=== PATIENT | female | born 1965 | race Caucasian/White ===

== ENCOUNTER → 2021-08-14 19:11 | Outpatient (CLI) | payer BC, SELFPAY | PROVIDERS: PCP Family Medicine; Visit Provider Family Medicine | DX: G47.33 Obstructive sleep apnea (adult) (pediatric) (principal); R06.81 Apnea, not elsewhere classified; R40.0 Somnolence | CPT/HCPCS: 95806 ==

== ENCOUNTER → 2022-02-03 08:02 | Outpatient (CLI) | payer BC, SELFPAY ==
[2022-02-03 08:35] VITALS: PULSE 69; PULSE 72
--- NOTE | 2022-02-03 09:56 | XR_ITS ---
FINAL REPORT CLINICAL HISTORY: SOA x 1 yr FINDINGS: Two views of the chest were obtained. The heart size and pulmonary vascularity are within normal limits. The mediastinum is normal. There is mild linear opacity in the left lung base. There is no pneumothorax. The bony thorax is intact. IMPRESSION: Linear opacity in the left lung base could represent atelectasis or scarring. Reviewed, Interpreted and Dictated by Peter Perdomo III, MD Transcribed by Wang Vigil Authenticated and [facility]
== END ==
PROVIDERS: PCP Family Medicine; Visit Provider Nurse Practitioner Family
DX: R06.02 Shortness of breath (principal); G47.33 Obstructive sleep apnea (adult) (pediatric); E66.9 Obesity, unspecified; Z68.41 Body mass index [BMI] 40.0-44.9, adult; Z86.19 Personal history of other infectious and parasitic diseases; Z87.891 Personal history of nicotine dependence
CPT/HCPCS: 71046; 94060; 94618; 94640; 94727; 94729

== ENCOUNTER → 2022-05-08 14:19 | Outpatient (CLI) | payer BC, SELFPAY ==
--- NOTE | 2022-05-08 14:20 | CT_ITS ---
FINAL REPORT TECHNIQUE: Axial images were obtained from the lung apex to the mid abdomen by computed tomography. Coronal reformatted images were obtained. This study was performed with techniques to keep radiation doses as low as reasonably achievable, (ALARA). Individualized dose reduction techniques using automated exposure control or adjustment of mA and/or kV according to the patient''s size were employed. CLINICAL HISTORY: Abnormal CXR COMPARISON: Chest radiograph dated February 03, 2022 FINDINGS: CT CHEST WITHOUT CONTRAST There is no axillary adenopathy. There is no hilar or mediastinal adenopathy. Heart size is normal. There is no pericardial or pleural effusion. Limited images of the upper abdomen demonstrate gallstones in the gallbladder. On the lung window images, there is mild scarring in the lung bases. There is also mild atelectasis or scarring in the inferior lingula. No suspicious infiltrate or nodule is identified. IMPRESSION: Mild scarring in the lung bases. Mild atelectasis or scarring in the inferior lingula. Reviewed, Interpreted and Dictated by Peter Perdomo III, MD Transcribed by Alysa Sorto Authenticated and [facility]
== END ==
PROVIDERS: PCP Family Medicine; Visit Provider Internal Medicine Pulmonary Disease
DX: R06.00 Dyspnea, unspecified (principal); R93.89 Abnormal findings on diagnostic imaging of other specified body structures
CPT/HCPCS: 71250; 94070; 95070; J7674